=== PATIENT | female | born 1980 | race African-American/Black ===

== ENCOUNTER 2017-05-01 09:24 | Emergency (ER) | payer OTHER ==
[~2017-05-01] VITALS: Ht 170.2 cm; Wt 80.0 kg
[~2017-05-01 09:24] MED LIST: ALBU17AE27 IH; CETI-290 PO; FAMO20 PO; GLIP10 PO; LISI-660 PO
[2017-05-01] MEDS ORDERED: METF500T4 PO (09:44)
[2017-05-01 09:57] LABS: GLUCOSE,POINT OF CARE 217 MG/DL (70-110)
[2017-05-01] MEDS ORDERED: PredniSONE 20 MG TABLET PO ONE (12:00)
[2017-05-01] MEDS ORDERED: IPRATROPIUM BROMIDE 0.5 MG/2.5 ML NEB SOLUTION NEB ONE (12:00)
[2017-05-01] MEDS ORDERED: ALBUTEROL SULFATE 2.5 MG/0.5 ML NEB SOLUTION NEB ONE (12:00)
[2017-05-01 12:06] VITALS: BP 132/90
== END 2017-05-01 12:42 | disposition home or self-care (01) ==
LOC: EMS 09:25
DX: J45.901 Unspecified asthma with (acute) exacerbation (principal); E11.65 Type 2 diabetes mellitus with hyperglycemia; I10 Essential (primary) hypertension; Z88.2 Allergy status to sulfonamides; Z88.8 Allergy status to other drugs, medicaments and biological substances
CPT/HCPCS: 82962; 94640; 99283; J7512; J7613

== ENCOUNTER 2017-05-07 16:10 | Emergency (ER) | payer OTHER ==
[~2017-05-07] VITALS: Ht 170.2 cm; Wt 126.8 kg
[~2017-05-07 16:10] MED LIST changes: -GLIP10 PO; -LISI-660 PO; +METF500T4 PO
[2017-05-07] MEDS ORDERED: IBUP-2354 PO (16:18)
[2017-05-07 16:22] LABS: GLUCOSE,POINT OF CARE 136 MG/DL (70-110)
[2017-05-07] MEDS ORDERED: SODIUM CHLORIDE 0.9% 1,000 ML IV ONE (16:57)
[2017-05-07] MEDS ORDERED: ALBUTEROL SULFATE 5 MG/ML 20 ML NEB SOLN [BULK] NEB ONE (17:00)
[2017-05-07] MEDS ORDERED: MethylPREDNISolone SOD SUCC 125 MG/2 ML VIAL IVP ONE (17:00)
[2017-05-07] MEDS ORDERED: FAMOTIDINE 10 MG/ML 2 ML VIAL IVP ONE (17:00)
[2017-05-07] MEDS ORDERED: DiphenhydrAMINE HCL 50 MG/ML VIAL IVP ONE (17:00)
[2017-05-07] MEDS ORDERED: IPRATROPIUM BROMIDE 0.5 MG/2.5 ML NEB SOLUTION NEB ONE (17:00)
[2017-05-07] MEDS ORDERED: 0.9% SODIUM CHLORIDE 15 ML NEB SOLUTION NEB ONE (17:08)
[2017-05-07 19:10] VITALS: BP 109/67
== END 2017-05-07 19:39 | disposition home or self-care (01) ==
LOC: EMS 16:11
DX: T78.49XA Other allergy, initial encounter (principal); D64.9 Anemia, unspecified; J45.909 Unspecified asthma, uncomplicated; E11.9 Type 2 diabetes mellitus without complications; I10 Essential (primary) hypertension; Z88.2 Allergy status to sulfonamides; Z79.82 Long term (current) use of aspirin; Z79.899 Other long term (current) drug therapy; Z98.890 Other specified postprocedural states; X58.XXXA Exposure to other specified factors, initial encounter
CPT/HCPCS: 82962; 94644; 96374; 96375; 99285; J1200; J2930; J3490; J7030; J7611

== ENCOUNTER 2018-01-08 10:12 | Emergency (ER) | payer OTHER ==
[~2018-01-08] VITALS: Ht 170.2 cm; Wt 129.6 kg
[~2018-01-08 10:12] MED LIST changes: +IBUP-2354 PO; +METF-960 PO; -METF500T4 PO
[2018-01-08 10:24] LABS: GLUCOSE,POINT OF CARE 181 MG/DL (70-110)
[2018-01-08] MEDS ORDERED: PredniSONE 20 MG TABLET PO ONE (11:45)
[2018-01-08 13:01] VITALS: BP 128/85
== END 2018-01-08 13:06 | disposition home or self-care (01) ==
LOC: EMS 10:13
DX: T78.40XA Allergy, unspecified, initial encounter (principal); F41.9 Anxiety disorder, unspecified; J45.909 Unspecified asthma, uncomplicated; E11.9 Type 2 diabetes mellitus without complications; I10 Essential (primary) hypertension; Z88.2 Allergy status to sulfonamides; Z79.84 Long term (current) use of oral hypoglycemic drugs; Z79.899 Other long term (current) drug therapy
CPT/HCPCS: 82962; 99283; J7512